=== PATIENT | female | born 1935 | race Caucasian/White ===

== ENCOUNTER → 2018-01-24 | Outpatient (CLI) | payer MEDICARE ==
[~2018-01-24] MED LIST: CONTRAST GIVEN MC
[2018-01-24 13:46] LABS: ISTAT CREATININE 0.6 mg/dL (0.6-1.1)
[2018-01-24] MEDS: IOHEXOL 300 MG/ML 100ML VIAL. IV (13:46)
== END | disposition home or self-care (01) ==
LOC: KCIC CT 13:12
DX: I70.0 Atherosclerosis of aorta (principal); J84.10 Pulmonary fibrosis, unspecified; I10 Essential (primary) hypertension; R91.8 Other nonspecific abnormal finding of lung field
CPT/HCPCS: 71270; 82565; Q9967

== ENCOUNTER → 2018-02-06 | Outpatient (CLI) | payer MEDICARE | END | disposition home or self-care (01) | LOC: PETSC 14:01 | DX: S22.32XD Fracture of one rib, left side, subsequent encounter for fracture with routine healing (principal); R91.8 Other nonspecific abnormal finding of lung field; X58.XXXD Exposure to other specified factors, subsequent encounter | CPT/HCPCS: 78815; A9552 ==

== ENCOUNTER → 2018-05-26 | Outpatient (CLI) | payer MEDICARE ==
[2016-02-10 15:00] VITALS: BP 108/58
[~2018-05-26] MED LIST changes: +ASPI-612 PO; -CONTRAST GIVEN MC
--- NOTE | 2018-05-26 11:44 | RAD ---
EXAM: CT Chest without IV contrast CLINICAL HISTORY: LUNG [id number] COMPARISON: PET/CT 02/06/2018, CT chest 01/24/2018 TECHNIQUE: CT of the chest without intravenous contrast. Axial, coronal and sagittal reformatted images were generated. ---PQRS compliance statement - One or more of the following individualized dose reduction techniques were utilized for this study: 1. Automated exposure control 2. Adjustment of the mA and/or kV according to patient size 3. Use of iterative reconstruction technique--- FINDINGS: Lack of intravenous contrast limits evaluation of solid organs, vasculature, and lymph nodes. Chest: The heart is not enlarged. Coronary artery and aortic root calcifications are seen. Trace pericardial fluid likely physiologic. No mediastinal or hilar lymphadenopathy. No axillary lymphadenopathy. No pleural effusion or pneumothorax. Mosaic attenuation of the lungs bilaterally. A 1.7 x 1.7 x 1.2 cm (image 13) medial left upper lobe lung nodule is borderline decrease in size when compared to prior previously measuring 2 x 1.8 x 1.5 cm. The abnormality seen posteriorly at the same level previously measured 2 cm, now measures 0.6 cm (image 12). Previously seen tree-in-bud opacities have in general improved. Additional bilateral lung nodules measure less than 6 mm including a left upper lobe lung nodule (image 19) which measures 5 mm and is stable to 01/24/2018. Linear opacities in the lung bases likely atelectasis. Visualized Upper abdomen: Cystic lesions in the liver are unchanged. High density material layering dependently within the gallbladder likely sludge. Upper abdomen is otherwise unremarkable. Bones: Grossly unremarkable IMPRESSION: A medial left upper lobe lung nodule has mildly decreased in size. Nodular opacity in the left upper lobe/apex posteriorly has also decreased in size. In addition smaller lung nodules as well as tree-in-bud opacities are stable or mildly improved. Recommend six-month follow-up to to ensure stability. Electronically signed by: Noe Escobar MD (05/26/2018 11:40 AM) [id number]
== END | disposition home or self-care (01) ==
LOC: CT 08:40
PROVIDERS: ATTEND Internal Medicine Pulmonary Disease
DX: R91.8 Other nonspecific abnormal finding of lung field (principal); I10 Essential (primary) hypertension; G43.901 Migraine, unspecified, not intractable, with status migrainosus; Z98.49 Cataract extraction status, unspecified eye; Z88.0 Allergy status to penicillin; Z88.2 Allergy status to sulfonamides; Z88.5 Allergy status to narcotic agent; Z88.6 Allergy status to analgesic agent; Z88.8 Allergy status to other drugs, medicaments and biological substances; Z82.0 Family history of epilepsy and other diseases of the nervous system; Z82.49 Family history of ischemic heart disease and other diseases of the circulatory system; Z86.711 Personal history of pulmonary embolism; Z86.718 Personal history of other venous thrombosis and embolism; Z90.710 Acquired absence of both cervix and uterus
CPT/HCPCS: 71250

== ENCOUNTER → 2020-10-20 | Outpatient (CLI) | payer MEDICARE ==
[2016-02-10 15:00] VITALS: BP 108/58
[~2020-10-20] MED LIST changes: -ASPI-612 PO; +ASPI-886 PO
--- NOTE | 2020-10-20 16:41 | KCIC ---
EXAM: Pelvis and right hip, 2 views. HISTORY: Pain. Fall. COMPARISON: None. FINDINGS: A frontal view of the pelvis and frog-leg view of the right hip are obtained. There is a le ft hip arthroplasty in expected position. There is mild degenerative change at the lower lumbar level s. There is mild lumbar scoliosis. There is no acute osseous finding. There is suspected bone deminer alization. IMPRESSION: No acute osseous finding. Electronically signed by: Anabel Benavides MD (10/20/2020 4:39 PM) [id number]
== END ==
LOC: KCIC 14:30
PROVIDERS: ATTEND Family Medicine
DX: M25.551 Pain in right hip (principal)
CPT/HCPCS: 73501